=== PATIENT | female | born 1985 | race Caucasian/White ===

== ENCOUNTER 2017-12-03 16:49 | Inpatient (IN) | payer OTHER ==
[~2017-12-03] VITALS: Ht 157.5 cm; Wt 67.2 kg
[2017-12-03] MEDS ORDERED: SODIUM CHLORIDE 0.9% 1,000 ML IV ONE (17:15)
[2017-12-03] MEDS ORDERED: SODIUM CHLORIDE 0.9% 500 ML IV ONE (18:25)
[2017-12-03] MEDS ORDERED: IBUPROFEN 800 MG TABLET PO PRN (18:30)
[2017-12-03 19:05] VITALS: BP 101/58
[2017-12-03] MEDS ORDERED: INFLUENZA VIRUS VACCINE QVS 2017-18 (3YR+)/PF 60 MCG/0.5 ML SYRINGE IM ONE (23:15)
[2017-12-03 23:32] VITALS: BP 88/58
[2017-12-04 05:00] VITALS: BP 103/57
[2017-12-04] MEDS ORDERED: ONDANSETRON HCL 4 MG/2 ML VIAL IVP ONE (05:33)
[2017-12-04] MEDS ORDERED: MIDAZOLAM HCL 2 MG/2 ML VIAL IVP ONE (05:33)
[2017-12-04] MEDS ORDERED: MORPHINE SULFATE 4 MG/ML SYRINGE IVP ONE (05:33)
[2017-12-04] MEDS ORDERED: KETOROLAC TROMETHAMINE 60 MG/2 ML VIAL IM ONE (05:33)
[2017-12-04] MEDS ORDERED: PROPOFOL 1% 20 ML VIAL IVP ONE (05:33)
[2017-12-04] MEDS ORDERED: DEXAMETHASONE SOD PHOS 4 MG/ML VIAL IVP ONE (05:33)
[2017-12-04 08:00] VITALS: BP 99/60
[2017-12-04 08:35] VITALS: BP 123/67
== END 2017-12-04 11:10 | disposition home or self-care (01) | DRG 745 ==
LOC: EMS 16:52 → 6N 17:42
PROVIDERS: ADMIT Obstetrics & Gynecology; ATTEND Obstetrics & Gynecology
PROC: 0UDB7ZZ Extraction of Endometrium, Via Natural or Artificial Opening (ICD-10-PCS; principal; 2017-12-03 18:04)
DX: N93.9 Abnormal uterine and vaginal bleeding, unspecified (principal); O03.4 Incomplete spontaneous abortion without complication; Z28.21 Immunization not carried out because of patient refusal
CPT/HCPCS: 88305; 96360; 99285; J0690; J1100; J1885; J2250; J2270; J2405; J2704; J7030; J7040